=== PATIENT | male | born 1945 | race African-American/Black ===

== ENCOUNTER 2017-10-07 23:27 | Emergency (ER) | payer MEDICARE, MEDICAID ==
[~2017-10-07] VITALS: Ht 170.2 cm; Wt 73.0 kg
[2017-10-08 03:51] VITALS: BP 169/70
== END 2017-10-08 03:58 ==
LOC: ER 23:27
DX: T82.898A Other specified complication of vascular prosthetic devices, implants and grafts, initial encounter (principal); E78.00 Pure hypercholesterolemia, unspecified; I12.9 Hypertensive chronic kidney disease with stage 1 through stage 4 chronic kidney disease, or unspecified chronic kidney disease; N18.9 Chronic kidney disease, unspecified; E78.5 Hyperlipidemia, unspecified; Z99.2 Dependence on renal dialysis; Y92.89 Other specified places as the place of occurrence of the external cause
CPT/HCPCS: 99283